=== PATIENT | female | born 1935 | race Caucasian/White ===

== ENCOUNTER → 2016-07-17 | Outpatient (CLI) | payer OTHER ==
[~2016-07-17] MED LIST: ALBU18002 INH; ALBU1AER9 INH; ALEN70TA4 PO; ASCO10003 PO; ASPI81TA28 PO; ASTN; ATEN50TA8 PO; CIPR1TAB11 PO; CYTM5 PO; CZR50 PO; HYD10 PO; HYDR5TAB PO; HYDR5TAB57 PO; LEVO100T PO; MAGN1POW2 PO; METH118C PO; METH1TAB3 PO; PRAV20TA PO; PRENTAB26 PO; PRM625 PO; PRMVC TOP; SNG10 PO; SOMA6INJ SQ; SPIR25TA PO; SYMIN160 INH; VTMD1000 PO; ZINC100T2 PO; ZINC30TA3 PO; ZINC50TA3 PO
[2016-07-17 10:46] LABS: ALKALINE PHOSPHATASE 66 U/L (45-117); ALT/SGPT 21 U/L (12-78); AST/SGOT 15 U/L (15-37)
== END | disposition home or self-care (01) ==
LOC: C.LABFOXMH 10:19
PROVIDERS: ATTEND Internal Medicine
DX: Z51.81 Encounter for therapeutic drug level monitoring (principal)

== ENCOUNTER → 2016-07-31 | Outpatient (CLI) | payer OTHER ==
[~2016-07-31] MED LIST changes: -CIPR1TAB11 PO
[2016-07-31 09:58] LABS: ALKALINE PHOSPHATASE 67 U/L (45-117); ALT/SGPT 25 U/L (12-78); AST/SGOT 17 U/L (15-37); CHOLESTEROL 173 mg/dl (0-200); CHOLESTEROL/HDL RATIO 4.8; HDL CHOLESTEROL 36 mg/dl; LDL CHOLESTEROL CALCULATED 106 mg/dl; TRIGLYCERIDES 155 mg/dl (0-150); VERY LOW DENSITY LIPOPROT CALC 31 mg/dl
== END | disposition home or self-care (01) ==
LOC: C.LABFOXMH 08:58
PROVIDERS: ATTEND Internal Medicine
DX: E78.00 Pure hypercholesterolemia, unspecified (principal)

== ENCOUNTER → 2016-08-11 | Outpatient (CLI) | payer OTHER | LOC: C.MAMM 14:26 | PROVIDERS: ATTEND Internal Medicine | DX: M81.0 Age-related osteoporosis without current pathological fracture (principal); Z79.52 Long term (current) use of systemic steroids ==

== ENCOUNTER → 2016-09-01 | Outpatient (CLI) | payer OTHER ==
[2016-09-01 11:01] LABS: ALKALINE PHOSPHATASE 60 U/L (45-117); ALT/SGPT 22 U/L (12-78); AST/SGOT 14 U/L (15-37)
== END | disposition home or self-care (01) ==
LOC: C.LABFOXMH 10:02
PROVIDERS: ATTEND Internal Medicine
DX: Z51.81 Encounter for therapeutic drug level monitoring (principal)

== ENCOUNTER 2016-09-05 14:16 | Emergency (ER) | payer OTHER ==
[~2016-09-05] VITALS: Ht 151.1 cm; Wt 44.6 kg
[~2016-09-05 14:16] MED LIST changes: -ALBU18002 INH; -ASTN; -HYDR5TAB57 PO; -METH1TAB3 PO; -PRENTAB26 PO; -PRM625 PO; -ZINC100T2 PO; -ZINC50TA3 PO
[2016-09-05 14:22] VITALS: TEMP 36.6; Ht 151.1 cm; Wt 44.6 kg
[2016-09-05] MEDS ORDERED: SNG10 PO (15:48)
[2016-09-05] MEDS ORDERED: HYDR5TAB57 PO (15:48)
[2016-09-05] MEDS ORDERED: ASTN (15:48)
[2016-09-05] MEDS ORDERED: CZR50 PO (15:48)
[2016-09-05] MEDS ORDERED: ZINC100T2 PO (15:48)
[2016-09-05] MEDS ORDERED: ALBU18002 INH (15:48)
[2016-09-05] MEDS ORDERED: ZINC50TA3 PO (15:48)
[2016-09-05] MEDS ORDERED: CYTM5 PO (15:48)
[2016-09-05] MEDS ORDERED: HYDR5TAB PO (15:48)
[2016-09-05] MEDS ORDERED: METH1TAB3 PO (15:48)
--- NOTE | 2016-09-05 17:03 | DIAGNOSTIC IMAGING REPORT ---
CT OF THE HEAD WITHOUT CONTRAST CLINICAL HISTORY: Fall. COMPARISON STUDY: Head CT October 23, 2015. CT DOSE: 715.62 mGy.cm TECHNIQUE: Helical axial images of the head were obtained without IV contrast. Automated exposure control was utilized for the study. FINDINGS: This exam is mildly compromised by motion artifact. No acute intracranial hemorrhage, midline shift or mass effect is present. Ventricular system is stable. Basilar cisterns are patent. There are no extra-axial collections. White matter hypodensity suggests small vessel disease. There is a left posterior scalp contusion with no calvarial fracture. A small amount of fluid within the bilateral mastoid air cells is unchanged. Wall thickening of the right posterior ethmoid and sagittal sinuses is chronic. IMPRESSION: 1. No acute intracranial findings. 2. Left posterior scalp laceration and contusion. No calvarial fracture. Electronically signed by: Arnie Kohler M.D. 09/05/2016 5:02 PM Dictated Date/Time: 09/05/2016 5:00 PM
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
[2016-09-05 17:29] VITALS: BP 144/59; PULSE 71; O2SAT 94
== END 2016-09-05 17:30 | disposition home or self-care (01) ==
LOC: EDBD 14:16 → C.EDA 14:17
DX: S01.91XA Laceration without foreign body of unspecified part of head, initial encounter (principal); S51.802A Unspecified open wound of left forearm, initial encounter; W19.XXXA Unspecified fall, initial encounter; Y92.481 Parking lot as the place of occurrence of the external cause; F03.90 Unspecified dementia, unspecified severity, without behavioral disturbance, psychotic disturbance, mood disturbance, and anxiety; I48.91 Unspecified atrial fibrillation; J45.909 Unspecified asthma, uncomplicated; I10 Essential (primary) hypertension; E03.9 Hypothyroidism, unspecified

== ENCOUNTER → 2016-10-07 | Outpatient (CLI) | payer OTHER ==
[~2016-10-07] MED LIST changes: +ALBU18002 INH; -ALBU1AER9 INH; +ASTN; -HYD10 PO; +HYDR5TAB57 PO; -METH118C PO; +METH1TAB3 PO; +PRENTAB26 PO; +PRM625 PO; +ZINC100T2 PO; -ZINC30TA3 PO; +ZINC50TA3 PO
--- NOTE | 2016-10-07 12:31 | DIAGNOSTIC IMAGING REPORT ---
VIDEO SWALLOW HISTORY: DYSPHAGIA, COUGH TECHNIQUE: Video fluoroscopic evaluation of swallowing was performed in the AP and lateral projections by the speech pathology staff. The patient is fed nectar-thick and thin liquid barium, a barium coated wafer, and barium pudding. FLUOROSCOPY TIME: 4.1 minutes. COMPARISON STUDY: None. FINDINGS: The patient was administered liquid barium via teaspoon. There is no aspiration. The patient then swallowed thin liquid barium via cup and there is evidence of penetration but no aspiration. When swallowing nectar thick liquids, there is no aspiration or penetration. When swallowing pudding, there was no aspiration. When swallowing a cracker with paste, there was no aspiration. Aspiration was visualized when followed with a liquid wash. IMPRESSION: 1. 1. Penetration when swallowing thin liquids. Single episode of aspiration when swallowing thin liquids following ingestion of a cracker with paste 2. Please see the speech pathologist report for detailed findings and recommendations. Electronically signed by: Seven Bingham M.D. 10/07/2016 12:30 PM Dictated Date/Time: 10/07/2016 12:27 PM
--- NOTE | 2016-10-08 11:32 | SWALLOWING EVALUATION ---
HISTORY: This 81 year old, woman, from [facility], was referred for a video swallow study at [facility] in order to rule out aspiration and identify the safest consistencies for optimal oral intake. The patient is reporting that she coughs frequently when she eats and drinks. PMH is significant for: Hematemesis, dizziness, anemia, GI bleed, falls, asthma, hypertension, and A-fib. Current diet is regular. PROCEDURE: The patient was seen in the Radiology Department of [facility] for the VFSS. Cursory examination of the oral cavity revealed natural dentition in fair condition. Movement of the articulators was impaired as evidenced by generalized weakness, and mild dysarthria (impacted by low volume as well). The patient was seated upright on a stool and was viewed in both the Anterior-Posterior (A-P) and Lateral planes. Volitional phonation exercises completed in the A-P plane revealed bilateral vocal fold movement and vocal intensity was judged to be low. In the lateral plane, the patient was given the following boluses: 1 tsp. thin liquid barium x 2, single swallow thin liquid barium self-presented from a cup, serial swallows of thin liquid barium self-presented via straw, 1 tsp. nectar-thick liquid barium, single swallow nectar-thick liquid barium self-presented from a cup, 1 tsp. barium pudding, and 1 club cracker with barium paste. The patient was then repositioned into the A-P plane and given the following boluses: 1 tsp. nectar-thick liquid barium and 1 tsp. barium pudding. Of note, this patient had significant difficulty with her ability to maintain appropriate positioning for the study and required assistance. She appeared to have difficulty maintaining trunk control and would lean forward, back, and laterally throughout the study. RESULTS: Oral Stage: Lip closure was minimally reduced as there was inter-labial escape that did not progress past the isi boarder. The patient presented with premature spillage of less than half of the bolus during the liquid bolus task. Mastication was slow and prolonged. Lingual motion for bolus transport was disorganized. There was retention lining the tongue and palate after the swallow. The initiation of the pharyngeal swallow was delayed, and triggered when the bolus head reached the pyriforms. Pharyngeal Stage: Soft palate elevation was complete. Laryngeal elevation revealed partial superior movement of the thyroid cartilage and partial approximation of the arytenoids to the epiglottic base. Anterior hyoid excursion was partially reduced. Epiglottic deflection was complete. Laryngeal vestibular closure was incomplete, with a narrow column of contrast being located in the vestibule at the height of the swallow. The pharyngeal stripping wave was present yet diminished. Pharyngeal contraction was also complete. The opening to the pharyngoesophageal segment (PES) was partially reduced, with partial distention and duration of the opening. Tongue base retraction was reduced, with a narrow column of contrast being located between the tongue base and pharyngeal wall during the swallow. There was retention located along the tongue base and in the valleculae after the swallow. Laryngeal penetration of thin liquids was noted with a cup and straw. There was one episode of meghan aspiration, when thin liquids were used in an attempt to clear pharyngeal retention. She presented with a sensory response to this aspiration, as a cough was elicited and appeared to be effective in clearing the majority of the aspiration. Laryngeal penetration and aspiration were attributed to delayed swallow reflex. Compensatory strategies such as a chin tuck were not attempted as the patient was unable to maintain positioning for a long enough period of time to attempt. No aspiration of nectar thick liquids. She had retention of solid along the tongue base and valleculae. She was able to clear the majority of the pudding boluses with a second swallow, but this was not effective with a cracker bolus. A stated above a liquid wash was used and did assist to clear, but this resulted in aspiration of the thin liquid. Esophageal stage: There was mid esophageal retention. SUMMARY/RECOMMENDATIONS: This patient presents moderate clive-pharyngeal dysphagia. She also presents with signs and symptoms of esophageal dysfunction. The following is recommended: 1. Mechanical soft diet, thin liquids. 2. STRICT Aspiration precautions, NO straws. Fully upright for all p.o. intake and for 30-60 minutes after meals. Stringent oral care to include brushing all surfaces of the mouth before and after meals, as well as before bed. 3. Safe swallow strategies: SMALL single sips. Small bites. NO mixed consistencies (such as soups with noodles, cold cereal, etc). Double swallow after solids to reduce pharyngeal retention. 4. Consider a nutrition consult to determine any possible needs for supplements. 5. Would benefit from continued speech therapy at [facility], for further education on diet and safe swallow strategies. A trial of speech therapy for dysphagia may also be beneficial, for pharyngeal strengthening. Should the patient have any further difficulties with swallowing or coughing, consider liquid modification to nectar consistency. A summary of the results and recommendations was discussed with the patient, and her spouse with her permission, with verbal understanding. Thank you for referral of this patient. Please contact me at if any additional information is needed.
== END | disposition home or self-care (01) ==
LOC: C.RAD 11:01
PROVIDERS: ATTEND Internal Medicine
DX: R13.10 Dysphagia, unspecified (principal); R05 Cough

== ENCOUNTER 2016-10-31 17:21 | Emergency (ER) | payer OTHER ==
[~2016-10-31 17:21] MED LIST changes: -PRENTAB26 PO; -PRM625 PO
[2016-10-31 17:30] VITALS: TEMP 36.3; Ht 157.5 cm
[2016-10-31] MEDS ORDERED: PRENTAB26 PO (18:22)
[2016-10-31] MEDS ORDERED: PRM625 PO (18:24)
--- NOTE | 2016-10-31 18:46 | EMERGENCY ROOM VISIT NOTE ---
History First contact with patient: 18:05 Chief Complaint: FALL Stated Complaint: FALL @ NOON, VOMITING, CONFUSION History of Present Illness The patient is an 81 year old female who presents to the Emergency Room with complaints of fall. The patient resides at [facility] with her . He was in the room with her and states she was working on her plants and he heard a thud and looked over and she was sitting on the floor. He believes that she struck her head on the floor. He does not believe she had an episode of syncope. He states that at lunch she had an episode of emesis which is unusual for her. The patient has a history of dementia. The patient's also states he is concerned she could have a urinary tract infection because she seems to be slightly more unsteady on her feet. He states that she also has a history of aspiration but has not noticed her to be coughing or short of breath. He states that she has been ambulating over the last several hours and does not seem to have any pain in the lower extremities. He states that he noticed some bruising to the right hand when they arrived to the emergency department and he states that may have been from where he helped her up. Review of Systems A 10 system review of systems was completed with positives and pertinent negatives listed in the HPI. The history, history of present illness and review of systems is completely obtained from the patient's given her baseline dementia. 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 Family History Heart disease Hypertension Social History Smoking Status: Never Smoker Alcohol Use: none Drug Use: none Marital Status: Housing Status: lives with significant other Occupation Status: retired Current/Historical Medications Scheduled Alendronate Sodium (Fosamax), 70 MG PO WK Ascorbic Acid (Vitamin C), 1,000 MG PO BID17 Aspirin (Aspirin Ec), 81 MG PO HS Atenolol (Tenormin), 25 MG PO BID Budesonide/Formoterol Fumarate (Symbicort 160/4.5 Inhaler ), 2 PUFFS INH BID Cholecalciferol (Vitamin D3), 2,000 UNITS PO DAILY Estrogens, Conjugated (Premarin), 1 APPLN TOP 3XWK Estrogens, Conjugated (Premarin), 0.625 MG PO HS Hydrocortisone (Cortef), 7.5 MG PO QAM Hydrocortisone (Cortef), 5 MG PO BID Hydrocortisone (Cortef), 2.5 MG PO HS Levothyroxine Sodium (Synthroid), 100 MCG PO HS Liothyronine Sodium (Liothyronine Sodium), 5 MCG PO BID Losartan Potassium (Losartan Potassium), 50 MG PO QAM Magnesium Glycinate (Bulk) (Magnesium Glycinate), 240 MG PO DAILY Methenamine Mandelate (Methenamine Mandelate), 1 GM PO BID Montelukast Sod (Montelukast Sodium), 10 MG PO QPM Multivit/Min/Iron/Fol Ac/Pren ( Vitamin), 1 TAB PO DINNER Pravastatin (Pravachol ), 10 MG PO QAM Somatropin (Humatrope), 0.2 MCG SQ DAILY Spironolactone (Aldactone), 12.5 MG PO BID Zinc (Zinc), 50 MG PO QPM Zinc (Zinc), 100 MG PO QAM Scheduled PRN Albuterol Sulfate (Proair Respiclick), 2 PUFFS INH Q4 PRN for SOB/Wheezing Azelastine Hcl (Astelin Nasal Wingate), 1-2 SPRAYS NA BID PRN for PRN Allergies Coded Allergies: Crab (Verified Allergy, Mild, 10/31/16) Aspirin (Verified Adverse Reaction, Unknown, ASA-HIGH DOSE, 10/31/16) TOLERATES 81 MG DOSE Physical Exam Vital Signs Date Time Temp Pulse Resp B/P Pulse Ox O2 Delivery O2 Flow Rate FiO2 10/31/16 22:00 98 18 134/68 95 10/31/16 17:30 36.3 117 16 148/62 93 Room Air Physical Exam VITALS: Vitals are noted on the nurse's note and reviewed by myself. Vital signs stable. GENERAL: This is an 81-year-old female, in no acute distress, nondiaphoretic, well-developed well-nourished. SKIN: The skin was without rashes, erythema, edema, . There is ecchymosis but no edema There are no lacerations or abrasions. There is no tenting of the skin. Capillary reflex less than 2 seconds. HEAD: Normocephalic atraumatic. EARS: External auditory canals clear, tympanic membranes pearly terry without erythema or effusion bilaterally. No hemotympanums. No sutherland sign. No mastoid tenderness. EYES: Pupils equal round and reactive to light and accommodation. Conjunctivae without injection, sclerae without icterus. Extraocular movements intact. Fundoscopic exam without hemorrhages or papilledema. NOSE: Patent, turbinates without inflammation or discharge. No sinus tenderness. No septal hematoma or bleeding. FACE: No facial tenderness. Full range of motion of the jaw without tenderness. MOUTH: Mucous membranes moist. Pharynx without erythema or exudate. Uvula midline. Airway patent. Tongue does not deviate. NECK: Supple without nuchal rigidity. Cervical spine is nontender. Full range of motion of the neck without tenderness. No JVD. HEART: Regular rate and rhythm without murmurs gallops or rubs. LUNGS: Clear to auscultation bilaterally without wheezes, rales or rhonchi. No dullness to percussion. No retractions or accessory muscle use. No chest tenderness. ABDOMEN: Positive bowel sounds x 4. Normal tympanic percussion. Soft, nontender, without masses or organomegaly. MUSCULOSKELETAL: No muscle atrophy, erythema, or edema noted. Full range of motion without joint tenderness in all extremities. No tenderness to palpation. Normal gait. Strength 5/5 throughout. NEURO: Patient was alert and oriented to person place and time. Normal Mini- Mental status exam. Normal sensation to light and sharp touch. Negative Romberg and pronator drift. Cerebellar function intact. No focal neurological deficits. Medical Decision & Procedures ER Provider Diagnostic Interpretation: RIGHT HAND MIN 3 VIEWS ROUTINE CLINICAL HISTORY: fall, hand pain Right pain COMPARISON: None. DISCUSSION: Moderate generalized degenerative changes throughout. This is most prominent at the first as well as second carpometacarpal joints. Components of chondrocalcinosis present. There is no well-defined fracture or dislocation. Mild soft tissue edema is present. IMPRESSION: Generalized degenerative change. Soft tissue edema. No acute bony abnormality. CERVICAL SPINE CT CT DOSE: 1609.36 mGy.cm HISTORY: Trauma. Pain. fall TECHNIQUE: Multiaxial CT images of the cervical spine were performed and reformatted in the sagittal and coronal plane without the use of contrast. COMPARISON: 10/23/2015 FINDINGS: Findings of considerable degenerative and congenital change as described previously. Slight wedge deformities of C7-T1 anterolisthesis and T2 which have been pre-existing. No evidence for an acute significant compression deformity. No significant retropulsion of any component of the vertebral bodies. Degenerative changes C1-C2 complex. Prevertebral soft tissues are unremarkable. IMPRESSION: Considerable degenerative change. Osteopenia. No acute compression deformity. CHEST ONE VIEW PORTABLE CLINICAL HISTORY: fall trauma COMPARISON STUDY: 07/07/2016 FINDINGS: Emphysematous change. No well-defined infiltrate. Chronic pleural and parenchymal changes pulmonary apices as well as lung bases. IMPRESSION: Chronic and emphysematous change. No acute process. HEAD CT NONCONTRAST CT DOSE: HISTORY: Trauma fall, head injury TECHNIQUE: Multiaxial CT images of the head were performed without the use of intravenous contrast. Comparison: 09/05/2016 Findings: The paranasal sinuses and mastoid air cells are clear. The calvarium and skull base are intact. The ventricles and sulci are within normal limits. There is no mass, hematoma, midline shift, or acute infarct. Age-related atrophy and chronic small vessel change. Impression: No acute intracranial abnormality. Laboratory Results 10/31/16 19:05 Red Blood Count 4.11, Mean Corpuscular Volume 92.9, Mean Corpuscular Hemoglobin 29.9, Mean Corpuscular Hemoglobin Concent 32.2, Mean Platelet Volume 9.9, Neutrophils (%) (Auto) 83.3, Lymphocytes (%) (Auto) 7.8, Monocytes (%) (Auto) 7.8, Eosinophils (%) (Auto) 0.3, Basophils (%) (Auto) 0.3, Neutrophils # (Auto) 14.75, Lymphocytes # (Auto) 1.38, Monocytes # (Auto) 1.39, Eosinophils # (Auto) 0.06, Basophils # (Auto) 0.05 10/31/16 19:05 Test 10/31/16 19:05 10/31/16 20:21 White Blood Count 17.71 K/uL (4.8-10.8) Red Blood Count 4.11 M/uL (4.2-5.4) Hemoglobin 12.3 g/dL (12.0-16.0) Hematocrit 38.2 % (37-47) Mean Corpuscular Volume 92.9 fL (80-100) Mean Corpuscular Hemoglobin 29.9 pg (25-34) Mean Corpuscular Hemoglobin Concent 32.2 g/dl (32-36) Platelet Count 375 K/uL (130-400) Mean Platelet Volume 9.9 fL (7.4-10.4) Neutrophils (%) (Auto) 83.3 % Lymphocytes (%) (Auto) 7.8 % Monocytes (%) (Auto) 7.8 % Eosinophils (%) (Auto) 0.3 % Basophils (%) (Auto) 0.3 % Neutrophils # (Auto) 14.75 K/uL (1.4-6.5) Lymphocytes # (Auto) 1.38 K/uL (1.2-3.4) Monocytes # (Auto) 1.39 K/uL (0.11-0.59) Eosinophils # (Auto) 0.06 K/uL (0-0.5) Basophils # (Auto) 0.05 K/uL (0-0.2) RDW Standard Deviation 47.7 fL (36.4-46.3) RDW Coefficient of Variation 14.0 % (11.5-14.5) Immature Granulocyte % (Auto) 0.5 % Immature Granulocyte # (Auto) 0.08 K/uL (0.00-0.02) Prothrombin Time 10.7 SECONDS (9.0-12.0) Prothromb Time International Ratio 1.0 (0.9-1.1) Activated Partial Thromboplast Time 29.2 SECONDS (21.0-31.0) Partial Thromboplastin Ratio 1.1 Anion Gap 7.0 mmol/L (3-11) Estimated GFR () 96.6 Estimated GFR (Non- 83.4 BUN/Creatinine Ratio 35.4 (10-20) Calcium Level 9.5 mg/dl (8.5-10.1) Magnesium Level 2.2 mg/dl (1.8-2.4) Total Bilirubin 0.4 mg/dl (0.2-1) Aspartate Amino Transf (AST/SGOT) 19 U/L (15-37) Alanine Aminotransferase (ALT/SGPT) 23 U/L (12-78) Alkaline Phosphatase 78 U/L (45-117) Troponin I < 0.015 ng/ml (0-0.045) Total Protein 6.7 gm/dl (6.4-8.2) Albumin 3.0 gm/dl (3.4-5.0) Globulin 3.7 gm/dl (2.5-4.0) Albumin/Globulin Ratio 0.8 (0.9-2) Urine Color YELLOW Urine Appearance CLEAR (CLEAR) Urine pH 7.5 (4.5-7.5) Urine Specific [place] 1.020 (1.000-1.030) Urine Protein NEG (NEG) Urine Glucose (UA) NEG (NEG) Urine Ketones NEG (NEG) Urine Occult Blood NEG (NEG) Urine Nitrite NEG (NEG) Urine Bilirubin NEG (NEG) Urine Urobilinogen NEG (NEG) Urine Leukocyte Esterase NEG (NEG) Procedure The patient was monitored on a cardiac rn. They maintained a normal sinus rhythm without ectopy. ECG Indication: altered mental status, other (fall) Rate (beats per minute): 103 Rhythm: sinus tachycardia Findings: nonspecific-ST abn Change: no significant change ED Course The patient was seen and examined. Previous visits were reviewed. The patient does not have a fever. She does have a leukocytosis of 17.71. She does not have any significant electrolyte abnormality. Troponin is not elevated. INR is 1.0. Urinalysis is negative. Imaging was obtained as above and does not reveal any acute abnormality The patient presented to the emergency department after a fall. The patient's states that she did not seem to have fainted and did not have any loss of consciousness. The patient does have a history of baseline dementia and could not provide any history or complaints. The only significant abnormal finding was a leukocytosis. She does not have any obvious source for infection at this time. She should follow with her family doctor and have this rechecked. She should return to the ER if any worsening symptoms. The patient was also seen and examined by who agrees with the assessment and treatment plan. Medical Decision DIFFERENTIAL DIAGNOSIS: Aortic dissection, myocarditis, pericarditis, cervical disc disease, costochondritis, herpes zoster, rib fracture, pleuritis, pneumonia , pulmonary embolus, tension pneumothorax, anxiety disorder, somatoform disorder , choledocholithiasis, status, esophagitis, esophageal spasm, esophageal reflux , esophageal rupture, pancreatitis, peptic ulcer disease, cardiac ischemia, ST elevation SD, acute coronary syndrome, arrhythmia, coronary artery vasospasm. vavular heart disease, coronary artery disease, among others. Impression Primary Impression: Fall Additional Impression: Contusion of multiple sites Departure Information Dispostion Home / Self-Care Condition GOOD Referrals Wes Lilly (PCP) Patient Instructions My [facility] Additional Instructions Follow up with the family doctor this week Return with worsening symptoms Problem Qualifiers
[2016-10-31 19:15] LABS: BASO % 0.3 %; BASO ABS # 0.05 K/uL (0-0.2); COMPLETE YES; EOS % 0.3 %; HEMATOCRIT 38.2 % (37-47); IG% 0.5 %; LYMPH % 7.8 %; LYMPH ABS # 1.38 K/uL (1.2-3.4); MEAN CELL VOLUME 92.9 fL (80-100); MEAN CORPUSCULAR HEMOGLOBIN 29.9 pg (25-34); MEAN CORPUSCULAR HGB CONC 32.2 g/dl (32-36); MEAN PLATELET VOLUME 9.9 fL (7.4-10.4); MONO % 7.8 %; NEUT % 83.3 %; PLATELET COUNT 375 K/uL (130-400); RED BLOOD COUNT 4.11 M/uL (4.2-5.4); WHITE BLOOD COUNT 17.71 K/uL (4.8-10.8)
[2016-10-31 19:25] LABS: PARTIAL THROMBOPLASTIN RATIO 1.1; PROTHROMBIN TIME (PATIENT) 10.7 SECONDS (9.0-12.0)
[2016-10-31 19:32] LABS: ALT/SGPT 23 U/L (12-78); AST/SGOT 19 U/L (15-37); BLOOD UREA NITROGEN 22 mg/dl (7-18); BUN/CREATININE RATIO 35.4 (10-20); CALCIUM 9.5 mg/dl (8.5-10.1); CARBON DIOXIDE 28 mmol/L (21-32); CHLORIDE 102 mmol/L (98-107); CREATININE 0.62 mg/dl (0.60-1.20); GLUCOSE 142 mg/dl (70-99); MAGNESIUM 2.2 mg/dl (1.8-2.4); POTASSIUM 4.5 mmol/L (3.5-5.1); SODIUM 137 mmol/L (136-145)
[2016-10-31 19:37] LABS: ALB/GLOB RATIO 0.8 (0.9-2); ALKALINE PHOSPHATASE 78 U/L (45-117)
--- NOTE | 2016-10-31 19:45 | DIAGNOSTIC IMAGING REPORT ---
CERVICAL SPINE CT CT DOSE: 1609.36 mGy.cm HISTORY: Trauma. Pain. fall TECHNIQUE: Multiaxial CT images of the cervical spine were performed and reformatted in the sagittal and coronal plane without the use of contrast. COMPARISON: 10/23/2015 FINDINGS: Findings of considerable degenerative and congenital change as described previously. Slight wedge deformities of C7-T1 anterolisthesis and T2 which have been pre-existing. No evidence for an acute significant compression deformity. No significant retropulsion of any component of the vertebral bodies. Degenerative changes C1-C2 complex. Prevertebral soft tissues are unremarkable. IMPRESSION: Considerable degenerative change. Osteopenia. No acute compression deformity. Electronically signed by: Sherman Perera M.D. 10/31/2016 7:43 PM Dictated Date/Time: 10/31/2016 7:38 PM
--- NOTE | 2016-10-31 19:47 | DIAGNOSTIC IMAGING REPORT ---
HEAD CT NONCONTRAST CT DOSE: HISTORY: Trauma fall, head injury TECHNIQUE: Multiaxial CT images of the head were performed without the use of intravenous contrast. Comparison: 09/05/2016 Findings: The paranasal sinuses and mastoid air cells are clear. The calvarium and skull base are intact. The ventricles and sulci are within normal limits. There is no mass, hematoma, midline shift, or acute infarct. Age-related atrophy and chronic small vessel change. Impression: No acute intracranial abnormality. Electronically signed by: Sherman Perera M.D. 10/31/2016 7:45 PM Dictated Date/Time: 10/31/2016 7:44 PM
--- NOTE | 2016-10-31 20:12 | DIAGNOSTIC IMAGING REPORT ---
CHEST ONE VIEW PORTABLE CLINICAL HISTORY: fall trauma COMPARISON STUDY: 07/07/2016 FINDINGS: Emphysematous change. No well-defined infiltrate. Chronic pleural and parenchymal changes pulmonary apices as well as lung bases. IMPRESSION: Chronic and emphysematous change. No acute process. Electronically signed by: Sherman Perera M.D. 10/31/2016 8:10 PM Dictated Date/Time: 10/31/2016 8:09 PM
[2016-10-31 20:35] LABS: URINE APPEARANCE CLEAR (CLEAR); URINE BILIRUBIN NEG (NEG); URINE COLOR YELLOW; URINE NITRITE NEG (NEG); URINE PH 7.5 (4.5-7.5); UROBILINOGEN NEG (NEG); ZZURINE CULT IF INDIC CATH NO
[2016-10-31 20:37] LABS: MANUAL MICROSCOPIC REQUIRED? NO; REVIEW REQ? NO
--- NOTE | 2016-10-31 20:49 | DIAGNOSTIC IMAGING REPORT ---
RIGHT HAND MIN 3 VIEWS ROUTINE CLINICAL HISTORY: fall, hand pain Right pain COMPARISON: None. DISCUSSION: Moderate generalized degenerative changes throughout. This is most prominent at the first as well as second carpometacarpal joints. Components of chondrocalcinosis present. There is no well-defined fracture or dislocation. Mild soft tissue edema is present. IMPRESSION: Generalized degenerative change. Soft tissue edema. No acute bony abnormality. Electronically signed by: Sherman Perera M.D. 10/31/2016 8:47 PM Dictated Date/Time: 10/31/2016 8:46 PM
--- NOTE | 2016-10-31 21:36 | EMERGENCY ROOM VISIT NOTE ---
ED Visit Note First contact with patient: 19:22 This Patient was discussed with the physician [employer] Operator, Karen Hart PA-C. The pertinent historical and physical exam findings were confirmed. I agree with the studies ordered and with the interpretations of these studies. I agree with the disposition and care plan.
[2016-10-31 22:00] VITALS: BP 134/68; PULSE 98; O2SAT 95
== END 2016-10-31 22:01 | disposition home or self-care (01) ==
LOC: C.EDB 17:23
DX: T14.8 Other injury of unspecified body region (principal); W19.XXXA Unspecified fall, initial encounter; F03.90 Unspecified dementia, unspecified severity, without behavioral disturbance, psychotic disturbance, mood disturbance, and anxiety; I48.91 Unspecified atrial fibrillation; I10 Essential (primary) hypertension; E03.9 Hypothyroidism, unspecified; N83.209 Unspecified ovarian cyst, unspecified side; J45.909 Unspecified asthma, uncomplicated; D64.9 Anemia, unspecified; Z87.81 Personal history of (healed) traumatic fracture; Z91.81 History of falling; Z79.82 Long term (current) use of aspirin; Z79.899 Other long term (current) drug therapy; Z88.6 Allergy status to analgesic agent; Z91.018 Allergy to other foods; Z82.49 Family history of ischemic heart disease and other diseases of the circulatory system

== ENCOUNTER → 2016-11-12 | Outpatient (CLI) | payer OTHER ==
[~2016-11-12] MED LIST changes: +PRENTAB26 PO; +PRM625 PO
== END | disposition home or self-care (01) ==
LOC: C.LABFOXDH 21:20
PROVIDERS: ATTEND Internal Medicine
DX: N39.0 Urinary tract infection, site not specified (principal)

== ENCOUNTER → 2016-12-03 | Outpatient (CLI) | payer OTHER ==
[2016-12-03 09:44] LABS: BASO % 0.3 %; BASO ABS # 0.04 K/uL (0-0.2); COMPLETE YES; EOS % 2.3 %; HEMATOCRIT 39.3 % (37-47); IG% 0.3 %; LYMPH % 24.8 %; LYMPH ABS # 2.85 K/uL (1.2-3.4); MEAN CELL VOLUME 95.4 fL (80-100); MEAN CORPUSCULAR HEMOGLOBIN 28.4 pg (25-34); MEAN CORPUSCULAR HGB CONC 29.8 g/dl (32-36); MEAN PLATELET VOLUME 10.2 fL (7.4-10.4); MONO % 6.4 %; NEUT % 65.9 %; PLATELET COUNT 461 K/uL (130-400); RED BLOOD COUNT 4.12 M/uL (4.2-5.4); WHITE BLOOD COUNT 11.49 K/uL (4.8-10.8)
[2016-12-03 10:04] LABS: AST/SGOT 12 U/L (15-37); BLOOD UREA NITROGEN 28 mg/dl (7-18); BUN/CREATININE RATIO 35.1 (10-20); CALCIUM 9.8 mg/dl (8.5-10.1); CARBON DIOXIDE 31 mmol/L (21-32); CHLORIDE 107 mmol/L (98-107); CREATININE 0.81 mg/dl (0.60-1.20); GLUCOSE 104 mg/dl (70-99); POTASSIUM 3.9 mmol/L (3.5-5.1); SODIUM 143 mmol/L (136-145)
[2016-12-03 10:07] LABS: ALB/GLOB RATIO 0.9 (0.9-2); ALKALINE PHOSPHATASE 91 U/L (45-117); ALT/SGPT 14 U/L (12-78); AMYLASE 76 U/L (25-115)
== END | disposition home or self-care (01) ==
LOC: C.LABFOXDH 08:44
PROVIDERS: ATTEND Internal Medicine
DX: R10.84 Generalized abdominal pain (principal)

== ENCOUNTER → 2016-12-09 | Outpatient (CLI) | payer OTHER ==
[2016-12-09 10:52] LABS: URINE APPEARANCE CLOUDY (CLEAR); URINE BILIRUBIN NEG (NEG); URINE COLOR YELLOW; URINE EPITHELIAL CELL AUTO >30 /lpf (0-5); URINE NITRITE NEG (NEG); URINE SPECIFIC GRAVITY 1.023 (1.000-1.030); UROBILINOGEN NEG (NEG); ZZUR CULT IF INDIC CLEAN CATCH YES
[2016-12-09 10:54] LABS: MANUAL MICROSCOPIC REQUIRED? NO; REVIEW REQ? NO
== END | disposition home or self-care (01) ==
LOC: C.LABFOXDH 10:05
PROVIDERS: ATTEND Internal Medicine
DX: R35.0 Frequency of micturition (principal); N39.0 Urinary tract infection, site not specified

== ENCOUNTER → 2016-12-13 | Outpatient (CLI) | payer OTHER | LOC: C.LABFOXDH 09:10 | PROVIDERS: ATTEND Internal Medicine | DX: R19.7 Diarrhea, unspecified (principal) ==

== ENCOUNTER → 2016-12-16 | Outpatient (CLI) | payer OTHER ==
--- NOTE | 2016-12-16 10:07 | DIAGNOSTIC IMAGING REPORT ---
GI SERIES W/AIR ROUTINE CLINICAL HISTORY: NAUSEA AND VOMITINGpain. Nausea. COMPARISON STUDY: 01/17/2008 FLUOROSCOPY TIME: 2.3 minutes. FINDINGS: Patient initiated swallowing function well. 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 Luminal narrowing is estimated 30-40%. Remainder the esophagus is unremarkable. Size configuration stomach are normal. Duodenal bulb fills well. Post pattern transit time throughout the proximal small bowel are unremarkable. IMPRESSION: 1. 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 2. Otherwise negative study Electronically signed by: Sherman Perera M.D. 12/16/2016 10:06 AM Dictated Date/Time: 12/16/2016 10:03 AM
== END | disposition home or self-care (01) ==
LOC: C.RAD 08:56
PROVIDERS: ATTEND Internal Medicine
DX: R11.2 Nausea with vomiting, unspecified (principal)

== ENCOUNTER → 2016-12-24 | Outpatient (CLI) | payer OTHER ==
[2016-12-24 10:20] LABS: ALKALINE PHOSPHATASE 62 U/L (45-117); ALT/SGPT 18 U/L (12-78); AST/SGOT 16 U/L (15-37)
== END | disposition home or self-care (01) ==
LOC: C.LABFOXDH 08:57
PROVIDERS: ATTEND Internal Medicine
DX: R10.9 Unspecified abdominal pain (principal)

== ENCOUNTER → 2017-01-21 | Outpatient (CLI) | payer OTHER ==
[2017-01-21 09:21] LABS: CHOLESTEROL/HDL RATIO 4.8
== END ==
LOC: C.LABFOXDH 08:51
PROVIDERS: ATTEND Internal Medicine
DX: E78.00 Pure hypercholesterolemia, unspecified (principal)

== ENCOUNTER → 2017-03-04 | Outpatient (CLI) | payer OTHER ==
[2017-03-04 10:34] LABS: HEMATOCRIT 41.5 % (37-47); MEAN CELL VOLUME 92.2 fL (80-100); MEAN CORPUSCULAR HEMOGLOBIN 28.9 pg (25-34); MEAN CORPUSCULAR HGB CONC 31.3 g/dl (32-36); MEAN PLATELET VOLUME 10.8 fL (7.4-10.4); PLATELET COUNT 303 K/uL (130-400); WHITE BLOOD COUNT 9.46 K/uL (4.8-10.8)
[2017-03-04 10:44] LABS: ALT/SGPT 16 U/L (12-78); AST/SGOT 11 U/L (15-37); BLOOD UREA NITROGEN 29 mg/dl (7-18); BUN/CREATININE RATIO 37.7 (10-20); CALCIUM 9.5 mg/dl (8.5-10.1); CARBON DIOXIDE 30 mmol/L (21-32); CHLORIDE 109 mmol/L (98-107); CREATININE 0.78 mg/dl (0.60-1.20); GLUCOSE 86 mg/dl (70-99); POTASSIUM 3.9 mmol/L (3.5-5.1); SODIUM 142 mmol/L (136-145)
[2017-03-04 10:46] LABS: ALB/GLOB RATIO 0.8 (0.9-2); ALKALINE PHOSPHATASE 56 U/L (45-117)
== END | disposition home or self-care (01) ==
LOC: C.LABFOXDH 10:13
PROVIDERS: ATTEND Nurse Practitioner Family
DX: R41.2 Retrograde amnesia (principal)

== ENCOUNTER → 2017-03-19 | Outpatient (CLI) | payer OTHER ==
[2017-03-19 10:21] LABS: BLOOD UREA NITROGEN 29 mg/dl (7-18); BUN/CREATININE RATIO 32.4 (10-20); CALCIUM 9.9 mg/dl (8.5-10.1); CARBON DIOXIDE 28 mmol/L (21-32); CHLORIDE 105 mmol/L (98-107); GLUCOSE 84 mg/dl (70-99); POTASSIUM 3.8 mmol/L (3.5-5.1); SODIUM 140 mmol/L (136-145)
== END | disposition home or self-care (01) ==
LOC: C.LABFOXDH 09:41
PROVIDERS: ATTEND Nurse Practitioner Family
DX: I10 Essential (primary) hypertension (principal)

== ENCOUNTER → 2017-03-27 | Outpatient (CLI) | payer OTHER ==
[2017-03-27 09:17] LABS: BLOOD UREA NITROGEN 26 mg/dl (7-18); BUN/CREATININE RATIO 41.1 (10-20); CALCIUM 9.5 mg/dl (8.5-10.1); CARBON DIOXIDE 29 mmol/L (21-32); CHLORIDE 106 mmol/L (98-107); CREATININE 0.64 mg/dl (0.60-1.20); GLUCOSE 77 mg/dl (70-99); POTASSIUM 4.4 mmol/L (3.5-5.1); SODIUM 139 mmol/L (136-145)
[2017-03-27 09:27] LABS: THYROID STIMULATING HORMONE 0.034 uIu/ml (0.300-4.500)
[2017-03-30 18:19] LABS: ILGF1 Z SCORE FEMALE -0.7 SD (-2.0 - +2.0); INSULIN LIKE GROWTH FACTOR-I 72 ng/mL (34-246); IONIZED CALCIUM** TC 19950E 5.48 MG/DL (4.8-5.6)
== END | disposition home or self-care (01) ==
LOC: C.LABFOXMH 08:11
PROVIDERS: ATTEND Internal Medicine
DX: M81.0 Age-related osteoporosis without current pathological fracture (principal); E23.6 Other disorders of pituitary gland

== ENCOUNTER → 2017-05-05 | Outpatient (CLI) | payer OTHER ==
[2017-05-05 10:40] LABS: HEMATOCRIT 41.2 % (37-47); MEAN CELL VOLUME 94.3 fL (80-100); MEAN CORPUSCULAR HEMOGLOBIN 30.9 pg (25-34); MEAN CORPUSCULAR HGB CONC 32.8 g/dl (32-36); MEAN PLATELET VOLUME 10.9 fL (7.4-10.4); PLATELET COUNT 301 K/uL (130-400); RED BLOOD COUNT 4.37 M/uL (4.2-5.4); WHITE BLOOD COUNT 8.78 K/uL (4.8-10.8)
[2017-05-05 10:49] LABS: BLOOD UREA NITROGEN 37 mg/dl (7-18); BUN/CREATININE RATIO 40.9 (10-20); CALCIUM 9.3 mg/dl (8.5-10.1); CARBON DIOXIDE 27 mmol/L (21-32); CHLORIDE 106 mmol/L (98-107); CREATININE 0.91 mg/dl (0.60-1.20); GLUCOSE 79 mg/dl (70-99); POTASSIUM 3.9 mmol/L (3.5-5.1); SODIUM 139 mmol/L (136-145)
[2017-05-05 11:00] LABS: THYROID STIMULATING HORMONE 0.092 uIu/ml (0.300-4.500)
[2017-05-08 15:19] LABS: ILGF1 Z SCORE FEMALE 0.1 SD (-2.0 - +2.0); INSULIN LIKE GROWTH FACTOR-I 107 ng/mL (34-246)
== END | disposition home or self-care (01) ==
LOC: C.LABFOXAC 09:43
PROVIDERS: ATTEND Internal Medicine
DX: E23.6 Other disorders of pituitary gland (principal); I25.10 Atherosclerotic heart disease of native coronary artery without angina pectoris

== ENCOUNTER → 2017-06-23 | Outpatient (CLI) | payer OTHER | END | disposition home or self-care (01) | LOC: C.LABFOXAC 10:01 | PROVIDERS: ATTEND Internal Medicine | DX: A04.72 Enterocolitis due to Clostridium difficile, not specified as recurrent (principal) ==